=== PATIENT | female | born 1935 | race Caucasian/White ===

== ENCOUNTER 2018-11-24 09:26 | Emergency (ER) | payer MEDICARE, MEDICAID ==
[~2018-11-24] VITALS: Ht 154.9 cm; Wt 52.2 kg
[~2018-11-24 09:26] MED LIST: ACETAMINOPHEN; ASP81CT PO; C250T PO; CARV6.252 PO; CLD600T PO; CLOP75TA PO; CPR500T PO; E400C; FAMO20TA5 PO; IBUPROFEN; MAGNESIUM OTC; MULT1TAB63 PO; OMEG1CAP51 PO; PYRI50TA; THM100T; [UNRECOGNIZED DRUG - OTHER]
--- NOTE | 2018-11-24 10:21 | ED Cardiac General ---
History of Present Illness General Chief Complaint: Cardiac/General Problems Stated Complaint: HYPERTENSION Nursing Triage Note: pt presents to ed via EMS from home with complaints of 3 dizzy/lightheaded spells this week that she is describing as "TIA's". Pt reports she has had 2 previous TIA's about 9 years ago. Pt denies SOA or CP. EMS reports pt was Hypertensive durring the transfer. Source: patient, EMS Exam Limitations: no limitations History of Present Illness Date Seen by Provider: Nov 24, 2018 Time Seen by Provider: 10:19 Initial Comments This 83-year-old white female presents with a history of feeling lightheaded and dizzy repeatedly this week she's had 3 separate episodes. They are similar to her previous TIAs which occurred approximately a decade ago. Patient has had no chest pain, palpitations, or shortness of breath. She denies fever or chills photophobia or stiff neck Allergies and Home Medications Allergies Coded Allergies: No Known Drug Allergies (Verified , 09/19/07) Home Medications Ascorbic Acid 250 Mg Tablet, 250 MG PO DAILY, (Reported) Aspirin 81 Mg Chew, 81 MG PO DAILY, (Reported) Calcium Carbonate/Vitamin D3 1 Tab Tablet, 1 TAB PO DAILY, (Reported) Carvedilol 6.25 Mg Tablet, 1 EACH PO BID, (Reported) Clopidogrel Bisulfate 75 Mg Tablet, 1 EACH PO DAILY Prescribed by: RIMMA SIMEON on 07/08/102130 Famotidine 20 Mg Tablet, 1 EACH PO BID, (Reported) Multivitamins 1 Ea Tablet, 1 TAB PO DAILY, (Reported) [place]-3 Fatty Acids/Fish Oil 1 Each Capsule, 1 EACH PO DAILY, (Reported) Patient Home Medication List Home Medication List Reviewed: Yes Review of Systems Review of Systems Constitutional: No chills, No fever EENTM: No Blurred Vision Respiratory: Denies Cough Cardiovascular: Denies Chest Pain, Denies Palpitations, Denies Syncope Gastrointestinal: Denies Diarrhea, Denies Nausea Genitourinary: Denies Burning Musculoskeletal: No back pain Skin: No change in color, No rash Psychiatric/Neurological: Other Endocrine: No Symptoms Reported (TIA-like symptoms) Hematologic/Lymphatic: No Symptoms Reported Past Wynvzqp-Keheoe-Sguboz Hx Past Med/Social Hx: Reviewed Nursing Past Med/Soc Hx Patient Social History Alcohol Use: Denies Use Recreational Drug Use: No Smoking Status: Never a Smoker Recent Foreign Travel: No Contact w/Someone Who Travel: No Recent Infectious Disease Expo: No Recent Hopitalizations: Yes (CHILDBIRTH) Physical Abuse: No Sexual Abuse: No Mistreated: No Fear: No Past Medical History Surgeries: Yes (colostomy) Respiratory: No Cardiac: Yes Hypertension Neurological: Yes TIA Reproductive Disorders: No Gastrointestinal: Yes Gastroesophageal Reflux Musculoskeletal: Yes (ARTHRITIS) Endocrine: No Psychosocial: No Blood Disorders: No Physical Exam Vital Signs Vital Signs - First Documented 11/24/18 09:40 Temp 96.3 Pulse 66 Resp 18 B/P (MAP) 183/96 (125) Pulse Ox 96 Capillary Refill : Less Than 3 Seconds Height, Weight, BMI Height: 5'1" Weight: 115lbs. 0.8oz. 52.578637it; BMI Method:Stated General Appearance: No Apparent Distress, WD/WN HEENT: Normal ENT Inspection Neck: Normal Inspection Respiratory: Lungs Clear, Normal Breath Sounds Cardiovascular: Regular Rate, Rhythm, Systolic Murmur (grade 4/6 systolic ejection murmur consistent with aortic stenosis) Gastrointestinal: Normal Bowel Sounds Extremity: Normal Inspection, Normal Range of Motion Neurologic/Psychiatric: Alert, Oriented x3, No Motor/Sensory Deficits Skin: Normal Color, Warm/Dry Progress/Results/Core Measures Results/Orders Lab Results Laboratory Tests Test 11/24/18 09:30 11/24/18 10:42 11/24/18 11:14 Range/Units White Blood Count 9.3 4.3-11.0 10^3/uL Red Blood Count 4.23 L 4.35-5.85 10^6/uL Hemoglobin 13.3 11.5-16.0 G/DL Hematocrit 41 35-52 % Mean Corpuscular Volume 96 80-99 FL Mean Corpuscular Hemoglobin 31 25-34 PG Mean Corpuscular Hemoglobin Concent 33 32-36 G/DL Red Cell Distribution Width 13.4 10.0-14.5 % Platelet Count 209 130-400 10^3/uL Mean Platelet Volume 10.0 7.4-10.4 FL Neutrophils (%) (Auto) 67 42-75 % Lymphocytes (%) (Auto) 20 12-44 % Monocytes (%) (Auto) 9 0-12 % Eosinophils (%) (Auto) 4 0-10 % Basophils (%) (Auto) 1 0-10 % Neutrophils # (Auto) 6.2 1.8-7.8 X 10^3 Lymphocytes # (Auto) 1.9 1.0-4.0 X 10^3 Monocytes # (Auto) 0.9 0.0-1.0 X 10^3 Eosinophils # (Auto) 0.3 0.0-0.3 10^3/uL Basophils # (Auto) 0.1 0.0-0.1 10^3/uL Prothrombin Time 14.4 12.2-14.7 SEC INR Comment 1.1 0.8-1.4 Activated Partial Thromboplast Time 40 H 24-35 SEC D-Dimer 0.39 0.00-0.49 UG/ML Sodium Level 144 135-145 MMOL/L Potassium Level 4.1 3.6-5.0 MMOL/L Chloride Level 107 98-107 MMOL/L Carbon Dioxide Level 29 21-32 MMOL/L Anion Gap 8 5-14 MMOL/L Blood Urea Nitrogen 22 H 7-18 MG/DL Creatinine 1.24 0.60-1.30 MG/DL Estimat Glomerular Filtration Rate 41 BUN/Creatinine Ratio 18 Glucose Level 111 H 70-105 MG/DL Calcium Level 10.1 8.5-10.1 MG/DL Corrected Calcium 10.1 8.5-10.1 MG/DL Total Bilirubin 0.6 0.1-1.0 MG/DL Aspartate Amino Transf (AST/SGOT) 17 5-34 U/L Alanine Aminotransferase (ALT/SGPT) 13 0-55 U/L Alkaline Phosphatase 94 40-136 U/L Troponin I < 0.028 <0.028 NG/ML Total Protein 7.2 6.4-8.2 GM/DL Albumin 4.0 3.2-4.5 GM/DL Glucometer 103 70-110 MG/DL Urine Color YELLOW Urine Clarity CLEAR Urine pH 7 5-9 Urine Specific [place] 1.010 L 1.016-1.022 Urine Protein NEGATIVE NEGATIVE Urine Glucose (UA) NEGATIVE NEGATIVE Urine Ketones NEGATIVE NEGATIVE Urine Nitrite NEGATIVE NEGATIVE Urine Bilirubin NEGATIVE NEGATIVE Urine Urobilinogen NORMAL NORMAL MG/DL Urine Leukocyte Esterase NEGATIVE NEGATIVE Urine RBC (Auto) NEGATIVE NEGATIVE Urine RBC NONE /HPF Urine WBC NONE /HPF Urine Squamous Epithelial Cells 0-2 /HPF Urine Crystals NONE /LPF Urine Bacteria NEGATIVE /HPF Urine Casts NONE /LPF Urine Mucus NEGATIVE /LPF Urine Culture Indicated NO My Orders Orders - CINDY CANDELARIA MD Cbc With Automated Diff (11/24/18 10:22) Protime With Inr (11/24/18 10:22) Partial Thromboplastin Time (11/24/18 10:22) Comprehensive Metabolic Panel (11/24/18 10:22) Fibrin Degradation Products (11/24/18 10:22) Troponin I (11/24/18 10:22) Ua Culture If Indicated (11/24/18 10:22) Chest 1 View, Ap/Pa Only (11/24/18 10:22) Ekg Tracing (11/24/18 10:22) Nothing By Mouth (11/24/18 Dinner) Accucheck Stat ONCE (11/24/18 10:22) Ed Iv/Invasive Line Start (11/24/18 10:22) Ed Iv/Invasive Line Start (11/24/18 10:22) Vital Signs Stroke Patient Q15M (11/24/18 10:22) Ct Head Wo-R/O Stroke (11/24/18 10:22) O2 (11/24/18 10:22) Intake & Output 06,14,22 (11/24/18 10:22) Monitor-Rhythm Ecg Trace Only (11/24/18 10:) Dysphagia Screening Tool (11/24/18 10:22) Post Thrombolytic Adminstratio (11/24/18 10:22) Lipid Panel (11/25/18 06:00) Vital Signs/I&O 11/24/18 09:40 Temp 96.3 Pulse 66 Resp 18 B/P (MAP) 183/96 (125) Pulse Ox 96 Blood Pressure Mean: 125 Progress Progress Note : Time: 12:33 Progress Note The patient's CT of the head demonstrated no evidence of acute cerebral hemorrhage. There were lacunar infarcts noted. The remainder the patient's laboratory evaluation was unremarkable. A long discussion was undertaken with the patient and her family specifically her daughter. The patient was able to clearly demonstrated capacity and elected to go home. The daughter wanted the patient's blood pressure treated which had been under good control with her physician Dr. Conrad. The patient was discharged home. She was given hydrochlorothiazide 25 mg daily to add to her present regimen for hypertension. She was S follow-up with Tuesday. She was invited to return to the emergency department she had any further problems or questions. Departure Impression Primary Impression: History of TIAs Disposition: HOME, SELF-CARE Condition: Unchanged Departure-Patient Inst. Decision time for Depature: 12:37 Referrals: FELI CONRAD MD (PCP/Family) Primary Care Physician Patient Instructions: Transient Ischemic Attack Add. Discharge Instructions: Thiazide 25 mg daily as prescribed. Close follow-up with Dr. Conrad Tuesday. Come back for any problems or questions. All discharge instructions reviewed with patient and/or family. Voiced understanding. Scripts Hydrochlorothiazide (Hydrochlorothiazide) 25 Mg Tablet 25 MG PO DAILY, #20 TAB Prov: CINDY CANDELARIA MD 11/24/18 CINDY CANDELARIA MD Nov 24, 2018 10:21
[2018-11-24 10:33] LABS: BASOPHILS # (AUTO) 0.1 10^3/uL (0.0-0.1); BASOPHILS % (AUTO) 1 % (0-10); EOSINOPHILS # (AUTO) 0.3 10^3/uL (0.0-0.3); EOSINOPHILS % (AUTO) 4 % (0-10); HEMATOCRIT 41 % (35-52); HEMOGLOBIN 13.3 G/DL (11.5-16.0); LYMPHOCYTES # (AUTO) 1.9 X 10^3 (1.0-4.0); LYMPHOCYTES % (AUTO) 20 % (12-44); MEAN CORPUSCULAR HEMOGLOBIN 31 PG (25-34); MEAN CORPUSCULAR HGB CONC 33 G/DL (32-36); MEAN CORPUSCULAR VOLUME 96 FL (80-99); MONOCYTES # (AUTO) 0.9 X 10^3 (0.0-1.0); MONOCYTES % (AUTO) 9 % (0-12); NEUTROPHILS # (AUTO) 6.2 X 10^3 (1.8-7.8); NEUTROPHILS % (AUTO) 67 % (42-75); PLATELET COUNT 209 10^3/uL (130-400); RED CELL DISTRIBUTION WIDTH 13.4 % (10.0-14.5); WHITE BLOOD COUNT 9.3 10^3/uL (4.3-11.0)
[2018-11-24 10:45] LABS: FIBRIN DEGRADATION PRODUCTS 0.39 UG/ML (0.00-0.49); INR 1.1 (0.8-1.4); PROTHROMBIN TIME PATIENT 14.4 SEC (12.2-14.7)
[2018-11-24 10:48] LABS: ALANINE AMINOTRANSFERASE 13 U/L (0-55); ALKALINE PHOSPHATASE 94 U/L (40-136); BILIRUBIN,TOTAL 0.6 MG/DL (0.1-1.0); BUN/CREATININE RATIO 18; CALCIUM 10.1 MG/DL (8.5-10.1); CARBON DIOXIDE 29 MMOL/L (21-32); CHLORIDE 107 MMOL/L (98-107); CREATININE SERUM 1.24 MG/DL (0.60-1.30); GFR ESTIMATED 41; GLUCOSE 111 MG/DL (70-105); POTASSIUM 4.1 MMOL/L (3.6-5.0); SODIUM 144 MMOL/L (135-145); TOTAL PROTEIN 7.2 GM/DL (6.4-8.2)
--- NOTE | 2018-11-24 11:02 | Diagnostic Imaging Report ---
PROCEDURE: CT head wo r/o stroke. TECHNIQUE: Multiple contiguous axial images were obtained through the brain without the use of intravenous contrast. Auto Exposure Controls were utilized during the CT exam to meet ALARA standards for radiation dose reduction. INDICATION: Hypertension with weakness and dizziness. Correlation is made with prior head CT from 07/08/2010. FINDINGS: Ventricles and sulci are appropriate for the patient's age. Tiny low-density left basal ganglia is noted consistent with age indeterminate. Lacunar infarct is not well seen on prior CT from 2010. Probable old lacunar infarct left madrigal radiata is also noted. No sulcal effacement or midline shift is seen. No acute intra-axial or extra-axial hemorrhage is detected. Cisterns are patent. Visualized paranasal sinuses are clear. IMPRESSION: 1. Age-related atrophy. No acute intracranial hemorrhage is detected. 2. Left basal ganglia and madrigal radiata lacunar infarcts. Basal ganglia lacunae is age indeterminate. If clinically indicated, an MRI can be performed for further evaluation. Dictated by: Dictated on workstation # [id number]
[2018-11-24 11:29] LABS: BILIRUBIN,URINE NEGATIVE (NEGATIVE); CLARITY,URINE CLEAR; COLOR,URINE YELLOW; GLUCOSE, URINE (UA) NEGATIVE (NEGATIVE); KETONES,URINE NEGATIVE (NEGATIVE); LEUKOCYTE ESTERASE ,URINE NEGATIVE (NEGATIVE); NITRITE,URINE NEGATIVE (NEGATIVE); PH,URINE 7 (5-9); PROTEIN,URINE NEGATIVE (NEGATIVE); UROBILINOGEN,URINE NORMAL (NORMAL)
--- NOTE | 2018-11-24 11:30 | Diagnostic Imaging Report ---
INDICATION: Weakness, dizziness, history of transient ischemic attack. TECHNIQUE: Single view chest 10:36 AM. CORRELATION STUDY: 07/03/2010, 03/04/2009 FINDINGS: Given differences in technique, heart size is likely within normal limits. Pulmonary vascularity within normal limits. Prominent appearance about the right superior paramediastinal regions, slightly more prominent from prior study, may be owing to tortuous, ectatic vessel. Lung gonzalez with chronic type change. Elevated right diaphragm with eventration. No infiltrate. IMPRESSION: 1. Negative for acute abnormality of the chest. Borderline heart size without evidence of overt failure. Dictated by: Dictated on workstation # [id number]
[2018-11-24 11:46] LABS: BACTERIA,URINE NEGATIVE /HPF; SQUAMOUS EPITHELIAL CELL,UR 0-2 /HPF
[2018-11-24] MEDS ORDERED: HYDR25TA4 PO (12:39)
[2018-11-24] MEDS ORDERED: HYDROCHLOROTHIAZIDE 25 MG (HCTZ) TAB PO ONE (13:00)
[2018-11-24 13:10] VITALS: BP 183/96
[2018-11-27] MEDS ORDERED: ASPI-999 PO (10:46)
[2018-11-27] MEDS ORDERED: FAMO20TA5 PO (10:46)
[2018-11-27] MEDS ORDERED: CALC-654 PO (10:46)
[2018-11-27] MEDS ORDERED: MULT1TAB69 PO (10:46)
[2018-11-27] MEDS ORDERED: CLOP75TA28 PO (10:46)
[2018-11-27] MEDS ORDERED: CARV6.252 PO (10:46)
[2018-11-27] MEDS ORDERED: C250T PO (10:46)
[2018-11-27] MEDS ORDERED: OMEG-77 PO (10:46)
[2018-11-27] MEDS ORDERED: CYAN-41 PO (10:50)
[2018-11-27] MEDS ORDERED: BEET ROOT PO (10:50)
[2018-11-27] MEDS ORDERED: CHOL10007 PO (10:50)
[2018-11-27] MEDS ORDERED: TURM538C PO (10:51)
== END 2018-11-24 13:12 | disposition home or self-care (01) ==
LOC: EDUNIT# 09:26 → ER 09:27
DX: R42 Dizziness and giddiness (principal); I10 Essential (primary) hypertension; K21.9 Gastro-esophageal reflux disease without esophagitis; Z86.73 Personal history of transient ischemic attack (TIA), and cerebral infarction without residual deficits; Z79.82 Long term (current) use of aspirin; Z79.02 Long term (current) use of antithrombotics/antiplatelets; Z93.3 Colostomy status
CPT/HCPCS: 36415; 70450; 71045; 80053; 81000; 82962; 84484; 85025; 85379; 85610; 85730; 93005; 93041